=== PATIENT | male | born 1960 | race Two or more races ===

== ENCOUNTER → 2018-02-04 | Outpatient (CLI) | payer SELFPAY ==
[2014-12-18 01:57] VITALS: BP 139/84
[~2018-02-04] MED LIST: IOHEXOL 240 MG/ML 50ML VIAL. PO ONE; IOHEXOL 300 MG/ML 100ML VIAL. IV ONE
--- NOTE | 2018-02-04 16:58 | RAD ---
Examination: CT ABDOMEN PELVIS WO/W History: WITH AND WITHOUT PER ORDERS PUNCTATE CALCIFICATION ABD PAIN BLOOD IN STOOLS INJ 75ML OMNI 300 PREV SENT Comparison/Correlation: CTA chest abdomen and pelvis without and with contrast 07/08/2010 Findings: Axial images of the abdomen and pelvis were obtained without contrast following 75 cc Omnipaque 300, axial images of the abdomen and pelvis were again obtained. Sagittal and coronal reformatted images were provided. Oral contrast was utilized for this exam. Minimal linear atelectasis at the left lung base is present. Liver, spleen, and adrenal glands are normal. Gallbladder fossa is unremarkable. Distal esophageal circumferential wall thickening is present. Right renal cyst is small in size of the lateral interpolar region. This has mildly increased since the prior exam. No definite left renal mass lesion. Very small to characterize low-attenuation foci which may represent cysts are suggested. There are no radiopaque collecting system calculi. Urinary bladder is unremarkable. No bowel obstruction. No inflammatory change involving the bowel. No inflammatory findings in particular about the cecum. No extraluminal gas or obstruction. No ascites or pelvic free fluid. No enlarged abdominal or pelvic lymph nodes. Bony structures are unremarkable for the patient's age. Impression: Distal esophageal circumferential wall thickening may represent esophagitis. Correlate with history of reflux. No radiopaque collecting system calculi. No suspicious mass. Electronically signed by: Mic Mcclain MD (02/04/2018 4:54 PM) [facility]
== END | disposition home or self-care (01) ==
LOC: CT 08:15
DX: N28.1 Cyst of kidney, acquired (principal); J98.11 Atelectasis; I10 Essential (primary) hypertension
CPT/HCPCS: 74178; Q9966; Q9967